=== PATIENT | female | born 1940 | race Caucasian/White ===

== ENCOUNTER 2023-09-20 07:28 | Emergency (ER) | payer MEDICARE ==
[~2023-09-20] VITALS: Ht 162.6 cm; Wt 107.0 kg
[~2023-09-20 07:28] MED LIST: ALPR0.5T PO; APIX5TAB PO; ASA81 PO; COR6.25 PO; FLUT1BLS11; FURO20TA4 PO; LEVO-62 PO; LIP40 PO; LOSA-413 PO; MELA3TAB41 PO; OMEP20CA15 PO; PRED20TA PO; SPIRIVA INH; VITD2000 PO
[2023-09-20] MEDS ORDERED: methylPREDNISolone SOD SUCC/PF 62.5 MG/ML VIAL IVP ONE (07:30)
[2023-09-20 07:48] VITALS: BP_SYST 146; PULSE 57; RESP 19; TEMP 97; O2SAT 96
[2023-09-20 07:54] LABS: ABG O2 SAT% ESTIMATE 99.4 % (94.0-100.0); BLOOD GAS HCO3 20.9 mmol/L (21.0-27.0); BLOOD GAS PCO2 42.6 mmHg (35.0-45.0); BLOOD GAS PH 7.309 (7.350-7.450); BLOOD GAS PO2 225.6 mmHg (75.0-100.0)
[2023-09-20 07:56] LABS: ALLEN'S TEST POSITIVE (P); BLOOD GAS BASE EXCESS -5.2 mmol/L (-3.0-3.0)
[2023-09-20 08:06] LABS: BASOPHILS % (AUTO) 0.7 % (0.0-2.0); EOSINOPHILS # (AUTO) 0.1 K/uL (0.0-0.4); EOSINOPHILS % (AUTO) 4.4 % (0.0-4.0); HEMATOCRIT 31.2 % (36-48); HEMOGLOBIN 10.3 g/dL (12.0-16.0); LYMPHOCYTES # (AUTO) 0.4 K/uL (1.0-5.5); LYMPHOCYTES % (AUTO) 12.7 % (20.5-51.5); MEAN CORPUSCULAR HEMOGLOBIN 29 pg (27-31); MEAN CORPUSCULAR HGB CONC 33 % (32-36); MEAN CORPUSCULAR VOLUME 89 fL (79.0-98.0); MONOCYTES # (AUTO) 0.3 K/uL (0.0-1.0); MONOCYTES % (AUTO) 9.2 % (1.7-9.3); NEUTROPHILS # (AUTO) 2.3 K/uL (1.8-7.7); PLATELET COUNT (AUTO) 117 K/uL (130-430); WHITE BLOOD COUNT (AUTO) 3.1 K/uL (4.8-10.8)
[2023-09-20 08:24] LABS: ANION GAP 9 (5-15); CALCIUM 8.8 mg/dL (8.4-11.0); CARBON DIOXIDE 26 mmol/L (23-29); CHLORIDE 111 mmol/L (98-107); CREATININE 1.55 mg/dL (0.55-1.30); GLUCOSE 74 mg/dL (74-106); POTASSIUM 4.9 mmol/L (3.5-5.1); SODIUM SERUM 146 mmol/L (136-145); UREA NITROGEN, BLOOD 44 mg/dL (8-21)
[2023-09-20 08:35] LABS: INFLUENZA TYPE A Negative (NEGATIVE); INFLUENZA TYPE B NEGATIVE (NEGATIVE)
[2023-09-20] MEDS ORDERED: FUROSEMIDE 20 MG/2 ML VIAL IVP ONE (09:15)
[2023-09-20] MEDS ORDERED: hydrALAZINE HCL 20 MG/ML VIAL IVP ONE (11:15)
[2023-09-20 13:22] VITALS: BP_SYST 176; PULSE 66; RESP 19; TEMP 97; O2SAT 91
== END 2023-09-20 13:21 | disposition short-term general hospital (02) ==
LOC: SED 07:28
DX: J44.1 Chronic obstructive pulmonary disease with (acute) exacerbation (principal); R09.02 Hypoxemia; I11.0 Hypertensive heart disease with heart failure; I50.9 Heart failure, unspecified; Z88.0 Allergy status to penicillin; Z88.8 Allergy status to other drugs, medicaments and biological substances; Z85.118 Personal history of other malignant neoplasm of bronchus and lung; Z79.899 Other long term (current) drug therapy; Z20.822 Contact with and (suspected) exposure to COVID-19
CPT/HCPCS: 99291; 96374; 71045; 96375; 87426; 80048; 83880; 85025; 87040; 84484; 36415; 93005; 36600; 82803; 87804 ×2; J0360; J1940; J2930

== ENCOUNTER 2023-10-19 18:46 | Emergency (ER) | payer MEDICARE ==
[~2023-10-19] VITALS: Ht 167.6 cm; Wt 79.4 kg
[2023-10-19 18:48] VITALS: BP_SYST 180; PULSE 110; RESP 19; TEMP 98.2; O2SAT 98
[2023-10-19 19:49] LABS: BASOPHILS % (AUTO) 0.2 % (0.0-2.0); EOSINOPHILS # (AUTO) 0.1 K/uL (0.0-0.4); EOSINOPHILS % (AUTO) 0.6 % (0.0-4.0); HEMATOCRIT 27.2 % (36-48); HEMOGLOBIN 9.1 g/dL (12.0-16.0); LYMPHOCYTES # (AUTO) 1.2 K/uL (1.0-5.5); LYMPHOCYTES % (AUTO) 13.6 % (20.5-51.5); MEAN CORPUSCULAR HEMOGLOBIN 30 pg (27-31); MEAN CORPUSCULAR HGB CONC 33 % (32-36); MEAN CORPUSCULAR VOLUME 89 fL (79.0-98.0); MONOCYTES # (AUTO) 0.9 K/uL (0.0-1.0); MONOCYTES % (AUTO) 10.1 % (1.7-9.3); NEUTROPHILS # (AUTO) 6.5 K/uL (1.8-7.7); NEUTROPHILS % (AUTO) 75.5 % (40.0-70.0); PLATELET COUNT (AUTO) 266 K/uL (130-430); RED BLOOD CELL COUNT(AUTO) 3.06 MIL/uL (4.2-6.2); RED CELL DISTRIBUTION WIDTH 17.5 % (9.0-15.0); WHITE BLOOD COUNT (AUTO) 8.6 K/uL (4.8-10.8)
[2023-10-19 20:20] LABS: ALANINE AMINOTRANSFERASE 34 U/L (12-78); ALBUMIN 2.9 g/dL (3.4-4.8); ASPARTATE AMINOTRANSFERASE 35 U/L (10-37); CALCIUM 8.3 mg/dL (8.4-11.0); CHLORIDE 108 mmol/L (98-107); CREATININE 1.98 mg/dL (0.55-1.30); GLUCOSE 75 mg/dL (74-106); POTASSIUM 3.4 mmol/L (3.5-5.1); SODIUM SERUM 142 mmol/L (136-145); TOTAL BILIRUBIN 0.6 mg/dL (0.0-1.0); TOTAL PROTEIN, SERUM 6.5 g/dL (6.4-8.3); UREA NITROGEN, BLOOD 43 mg/dL (8-21)
[2023-10-19 20:26] LABS: ANION GAP 9 (5-15); BILIRUBIN,DIRECT 0.2 mg/dL (0.0-0.3); CARBON DIOXIDE 25 mmol/L (23-29)
[2023-10-19] MEDS ORDERED: ASPIRIN 81 MG TAB.CHEW PO ONE (20:45)
[2023-10-19] MEDS ORDERED: APIXABAN 2.5 MG TABLET PO ONE (20:45)
[2023-10-19 20:51] LABS: INR 1.1 (0.8-1.2); PROTHROMBIN TIME 11.8 SECS (9.5-12.5)
[2023-10-19 21:21] LABS: BILIRUBIN,URINE NEGATIVE (NEGATIVE); BLOOD, URINE NEGATIVE (NEGATIVE); CLARITY/URINE CLEAR (CLEAR); COLOR,URINE YELLOW (YELLOW); GLUCOSE,URINE NEGATIVE (NEGATIVE); KETONES,URINE NEGATIVE (NEGATIVE); LEUKOCYTE ESTERASE ,URINE NEGATIVE (NEGATIVE); NITRITE, URINE NEGATIVE (NEGATIVE); PROTEIN URINE 3+ (NEGATIVE); UROBILINOGEN,URINE 0.2 (0.2-1.0)
[2023-10-19 21:30] LABS: INFLUENZA TYPE A Negative (NEGATIVE); INFLUENZA TYPE B NEGATIVE (NEGATIVE)
[2023-10-19 21:48] LABS: BACTERIA,URINE FEW /HPF (None Seen); MUCUS,URINE 2+ /LPF (None Seen); RBC,URINE 0-3 /HPF (0-3); WBC,URINE 0-3 /HPF (0-3)
[2023-10-19 23:28] VITALS: BP_SYST 126; PULSE 79; RESP 16; TEMP 98.6; O2SAT 93
== END 2023-10-19 23:28 | disposition short-term general hospital (02) ==
LOC: SED 18:46
DX: I63.9 Cerebral infarction, unspecified (principal); D53.9 Nutritional anemia, unspecified; I13.0 Hypertensive heart and chronic kidney disease with heart failure and stage 1 through stage 4 chronic kidney disease, or unspecified chronic kidney disease; N18.32 Chronic kidney disease, stage 3b; E78.5 Hyperlipidemia, unspecified; I50.9 Heart failure, unspecified; J44.9 Chronic obstructive pulmonary disease, unspecified; Z79.899 Other long term (current) drug therapy; Z20.822 Contact with and (suspected) exposure to COVID-19
CPT/HCPCS: 36415; 70450; 71045; 80048; 80076; 81000; 81001; 81015; 83605; 84484; 85025; 85610; 85730; 87040; 87086; 93005; 99285